=== PATIENT | male | born 1980 | race Caucasian/White ===

== ENCOUNTER 2016-09-25 13:07 | Emergency (ER) | payer SELFPAY ==
[~2016-09-25] VITALS: Ht 175.3 cm; Wt 84.1 kg
[~2016-09-25 13:07] MED LIST: DELTASONE20 M1 PO; PERCOCET 5/31 TABLET PO; PREDNISONE20 MG PO; VALIUM5 MG PO
[2016-09-25] MEDS ORDERED: ADVIL,NUPRIN,M200 MG PO (13:44)
[2016-09-25] MEDS ORDERED: PREDNISONE20 MG PO (14:13)
[2016-09-25] MEDS ORDERED: LIDODERM 5% P1 PATCH TD (14:13)
[2016-09-25] MEDS ORDERED: NAPROXEN500 MG PO (14:13)
[2016-09-25 15:22] VITALS: BP 105/75
== END 2016-09-25 15:23 | disposition home or self-care (01) ==
LOC: EXP 13:07 → EME 13:07 → EXP 15:23
DX: M54.16 Radiculopathy, lumbar region (principal); F17.200 Nicotine dependence, unspecified, uncomplicated
CPT/HCPCS: 99281; 99283; J1885; J3010; J7512